=== PATIENT | male | born 1985 | race Caucasian/White ===

== ENCOUNTER 2018-10-27 19:22 | Emergency (ER) | payer OTHER ==
[~2018-10-27] VITALS: Ht 175.3 cm; Wt 86.2 kg
[2018-10-27 19:29] VITALS: BP 152/90
--- NOTE | 2018-10-27 19:58 | PHYS DOC ---
Past History Past Medical History: Other Past Surgical History: No Surgical History Alcohol Use: None Drug Use: None Adult General Chief Complaint Chief Complaint: UPPER EXTREMITY INJURY HPI HPI 33-year-old male presents with left shoulder pain. The patient is in the and was doing combatives when he felt his shoulder pop out of place. He states it was lower and forward. After several minutes it "popped back into place". The patient thought everything was fine so he went home. When he was changing his clothes and raising his arms above his head to take his shirt off it popped out again. The patient decided to come the emergency room. While waiting in the waiting room, the patient felt it pop back into place. He did have some hand tingling that has resolved. The patient has never had shortness location the past. He has had some ligament laxity issues in his ankles and wrists previously. He has no formal diagnosis. He denies any other injuries or complaints. Review of Systems Review of Systems Constitutional: Denies fever or chills [] Eyes: Denies change in visual acuity, redness, or eye pain [] HENT: Denies nasal congestion or sore throat [] Respiratory: Denies cough or shortness of breath [] Cardiovascular: No additional information not addressed in HPI [] GI: Denies abdominal pain, nausea, vomiting, bloody stools or diarrhea [] : Denies dysuria or hematuria [] Musculoskeletal: Left shoulder pain[] Integument: Denies rash or skin lesions [] Neurologic: Denies headache, focal weakness or sensory changes [] Endocrine: Denies polyuria or polydipsia [] All other systems were reviewed and found to be within normal limits, except as documented in this note. Allergies Allergies Allergies Coded Allergies Type Severity Reaction Last Updated Verified No Known Drug Allergies 10/27/18 No Physical Exam Physical Exam Constitutional: Well developed, well nourished, no acute distress, non-toxic appearance. [] HENT: Normocephalic, atraumatic, bilateral external ears normal, oropharynx moist, no oral exudates, nose normal. [] Eyes: PERRLA, EOMI, conjunctiva normal, no discharge. [] Neck: Normal range of motion, no tenderness, supple, no stridor. [] Cardiovascular:Heart rate regular rhythm, no murmur [] Lungs & Thorax: Bilateral breath sounds clear to auscultation [] Abdomen: Bowel sounds normal, soft, no tenderness, no masses, no pulsatile masses. [] Skin: Warm, dry, no erythema, no rash. [] Back: No tenderness, no CVA tenderness. [] Extremities: No tenderness, no cyanosis, no clubbing, ROM intact, no edema. No obvious dislocation [] Neurologic: Alert and oriented X 3, normal motor function, normal sensory function, no focal deficits noted. [] Psychologic: Affect normal, judgement normal, mood normal. [] Current Patient Data Vital Signs Vital Signs Date Time Temp Pulse Resp B/P (MAP) Pulse Ox O2 Delivery O2 Flow Rate FiO2 10/27/18 19:29 98.2 66 16 98 EKG EKG [] Radiology/Procedures Radiology/Procedures [] Impressions: Primary interpretation: X-ray of the left shoulder does not show any acute findings or dislocation. Course & Med Decision Making Course & Med Decision Making Pertinent Labs and Imaging studies reviewed. (See chart for details) The patient's shoulder does not appear to be dislocated at this time. It does sound like it dislocated and relocated earlier today. I will place him in a sling for at least one day. I have advised that he be cautious in his activities in a few days and take NSAIDs for inflammation. He will follow up with his PCP and/or orthopedics if he continues to have difficulty. If it dislocates again and he is unable to put it back, he will return to the emergency room. He is stable for discharge at this time. [] Dragon Disclaimer Dragon Disclaimer This electronic medical record was generated, in whole or in part, using a voice recognition dictation system. Departure Departure: Impression: Primary Impression: Dislocation of left shoulder joint Disposition: HOME, SELF-CARE Condition: IMPROVED Referrals: BAILEY ROWELL DO (PCP) Patient Instructions: Shoulder Dislocation, Ehap-si-Mlgn Problem Qualifiers Primary Impression: Dislocation of left shoulder joint Encounter type: initial encounter Qualified Codes: S43.005A - Unspecified dislocation of left shoulder joint, initial encounter MARILYN NOVA DO Oct 27, 2018 19:58
--- NOTE | 2018-10-27 21:35 | RAD ---
Examination: SHOULDER 2+V LEFT History: Left shoulder injury while doing martial arts. Eval for dislocation Comparison/Correlation: None Findings: Three-view left shoulder x-ray exam was performed. Joint spaces are normal for the patient's age. No fracture or bony destruction. No dislocation. Visualized left lateral upper thorax is unremarkable. Impression: Normal left shoulder x-ray exam. Electronically signed by: Chepe Raman MD (10/27/2018 9:31 PM) [facility]
== END 2018-10-27 20:12 | disposition home or self-care (01) ==
LOC: ER 19:22
DX: S43.005A Unspecified dislocation of left shoulder joint, initial encounter (principal); X50.9XXA Other and unspecified overexertion or strenuous movements or postures, initial encounter; Y93.75 Activity, martial arts; Y92.89 Other specified places as the place of occurrence of the external cause; Y99.0 Civilian activity done for income or pay
CPT/HCPCS: 73030; 99283